=== PATIENT | male | born 1975 | race Caucasian/White ===

== ENCOUNTER 2016-08-09 08:58 | Emergency (ER) | payer MEDICARE, OTHER ==
[~2016-08-09] VITALS: Ht 182.9 cm; Wt 36.3 kg
--- NOTE | 2016-08-09 09:07 | NUR ---
DR PONCE AT THE BEDSIDE FOR EVAL AND EXAM.
[2016-08-09] MEDS ORDERED: ONDANSETRON 4 MG/2 ML VIAL IV ONE (09:15)
[2016-08-09] MEDS ORDERED: IV NORMAL SALINE 1000 ML BAG IV ONE (09:15)
[2016-08-09] MEDS ORDERED: HYDROMORPHONE 1 MG/1 ML DISP.SYRIN IV ONE (09:15)
[2016-08-09] MEDS ORDERED: LORAZEPAM 2 MG/1 ML VIAL IV ONE (09:15)
[2016-08-09] MEDS ORDERED: ONDANSETRON 4 MG/2 ML VIAL ONE (09:23)
[2016-08-09] MEDS ORDERED: HYDROMORPHONE 2 MG/1 ML DISP.SYRIN ONE (09:23)
[2016-08-09] MEDS ORDERED: LORAZEPAM 2 MG/1 ML VIAL ONE (09:24)
[2016-08-09 09:34] LABS: BASOPHILS % (AUTO) 0.3 % (0.0-2.0); EOSINOPHILS # (AUTO) 0.1 K/uL (0.0-0.7); EOSINOPHILS % (AUTO) 1.6 % (0.0-7.0); HEMATOCRIT 30.1 % (36.7-47.1); HEMOGLOBIN 10.6 g/dL (12.5-16.3); LYMPHOCYTES # (AUTO) 1.3 K/uL (20.0-40.0); LYMPHOCYTES % (AUTO) 15.7 % (20.5-51.5); MEAN CORPUSCULAR HEMOGLOBIN 30.3 uug (23.8-33.4); MEAN CORPUSCULAR HGB CONC 35 g/dL (32.5-36.3); MONOCYTES # (AUTO) 0.7 K/uL (2.0-10.0); MONOCYTES % (AUTO) 7.6 % (0.0-11.0); NEUTROPHILS # (AUTO) 6.5 K/uL (1.8-8.9); NEUTROPHILS % (AUTO) 74.8 % (38.5-71.5); PLATELET COUNT (AUTO) 234 K/uL (152-348); RED CELL DISTRIBUTION WIDTH 11.8 % (12.1-16.2); WHITE BLOOD COUNT (AUTO) 8.6 K/uL (3.6-10.2)
[2016-08-09 09:37] LABS: CALCIUM 8.3 mg/dL (8.5-10.1); POTASSIUM 3.2 mmol/L (3.5-5.1)
[2016-08-09] MEDS ORDERED: HYDR-548 PO (09:43)
[2016-08-09] MEDS ORDERED: ALPR2TAB2 PO (09:43)
[2016-08-09 09:54] LABS: ALBUMIN 3.8 g/dL (3.4-5.0); BILIRUBIN,DIRECT 0.1 mg/dL (0.0-0.2); BILIRUBIN,TOTAL 0.3 mg/dL (0.2-1.0); TOTAL PROTEIN, SERUM 6.6 g/dL (6.4-8.2)
[2016-08-09] MEDS ORDERED: POTASSIUM CHLORIDE 20 MEQ TAB.PRT.SR PO ONE (10:00)
--- NOTE | 2016-08-09 10:07 | NUR ---
CALLED [facility] TO SEE IF THE PT CAN BE ACCEPTED PER MD ORDER.
--- NOTE | 2016-08-09 10:09 | NUR ---
Patient is resting comfortably in bed with eyes closed, easily arousable, no c/o pain.
[2016-08-09] MEDS ORDERED: POTASSIUM CHLORIDE 20 MEQ TAB.PRT.SR ONE (10:14)
--- NOTE | 2016-08-09 11:10 | NUR ---
PLACED A SECOND CALL TO [facility], AWAITING FOR PT'S CASE TO BE REVIEWED. PT IS SLEEPING COMFORTABLY, AT THE BEDSIDE.
--- NOTE | 2016-08-09 13:10 | NUR ---
Patient is resting comfortably in bed with eyes closed,NAD noted.
--- NOTE | 2016-08-09 14:47 | NUR ---
spoke to [facility] pt is not accepted to their unit. dr micki driscoll.
--- NOTE | 2016-08-09 15:23 | NUR ---
SPOKE TO PT'S TO [facility] AFTER DISCHARGE. ETA 10 MIN. AWARE.
--- NOTE | 2016-08-09 15:30 | NUR ---
IV removed. Catheter intact and site benign. Pressure and 4x4 gauze applied to site. No bleeding noted.
[2016-08-09 15:44] VITALS: BP 110/66
--- NOTE | 2016-08-09 15:54 | NUR ---
Patient discharged to home in stable conditon. Written and verbal after care instructions given. Patient verbalizes understanding of instructions.
--- NOTE | 2016-08-09 15:54 | NUR ---
PT LEFT ER W/ STEADY GAIT ACCOMPAINED BY .
== END 2016-08-09 15:55 | disposition home or self-care (01) ==
LOC: ER 08:58
DX: F10.239 Alcohol dependence with withdrawal, unspecified (principal); Z88.6 Allergy status to analgesic agent
CPT/HCPCS: 36415; 70030-TC; 71010; 83690; 85025; 85730; 93005; A4663; J1170; J2060; J2405; J7030